=== PATIENT | male | born 1985 | race Caucasian/White ===

== ENCOUNTER 2018-03-20 22:43 | Observation (INO) ==
[2018-03-20] MEDS ORDERED: Sod Chloride 0.9% Inj 1,000 ML IV.SIG ONE ×3 (23:11→23:15)
--- NOTE | 2018-03-20 23:51 | XR ---
EXAM DATE: 03/20/2018 11:38 PM EDT AGE/SEX: 32 years / Male INDICATIONS: Chest pain short of breath. CLINICAL DATA: This is the patient's initial encounter. Patient reports that signs and symptoms have been present for 1 day and indicates a pain score of 0/10. MEDICAL/SURGICAL HISTORY: Diabetes. None. [place] [facility] [place]. . FINDINGS: A single AP view of the chest demonstrates the lungs to be symmetrically aerated without evidence of mass, infiltrate or effusion. No evidence of pneumothorax. The cardiomediastinal contours are unrema rkable. Osseous structures are intact. CONCLUSION: The lungs are clear. Electronically signed by: Galdino Lynn MD 03/20/2018 11:49 PM EDT
[2018-03-20 23:53] LABS: ABG Base Excess 5.2 mmol/L (-2-2); ABG PCO2 41 mmHg (38-42); ABG PO2 73 mmHg (61-120)
[2018-03-20 23:54] LABS: Alanine Aminotransferase 56 U/L (12-78); Alkaline Phosphatase 60 U/L (45-117); Beta Hydroxybutyric Acid 0.39 mmol/L (0.00-0.39); Total Protein 7.3 g/dL (6.4-8.2)
[2018-03-20 23:57] LABS: Anion Gap 10 meq/L (5-15); Aspartate Aminotransferase 44 U/L (15-37); Blood Urea Nitrogen 17 mg/dL (7-18); Calcium 9.4 mg/dL (8.5-10.1); Chloride 103 meq/L (98-107); Glomerular Filtration Rate 62 mL/min (>89); Glucose,Random 116 mg/dL (74-106); Lipase 62 U/L (73-393); Sodium 140 meq/L (136-145)
[2018-03-21] LABS: Potassium 3.8 meq/L (3.5-5.1)
[2018-03-21 00:11] LABS: Baso # (Auto) 0.1 th/mm3 (0.0-0.2); Baso % (Auto) 0.8 % (0.0-2.0); Eos # (Auto) 0.2 th/mm3 (0.0-0.4); Eos % (Auto) 1.5 % (0.0-4.0); Hematocrit 40.3 % (39.0-51.0); Hemoglobin 13.8 gm/dL (13.0-17.0); Lymph # (Auto) 2.8 th/mm3 (1.0-4.8); Lymph % (Auto) 23.3 % (9.0-44.0); Mean Corpuscular HGB Conc 34.2 % (32.0-36.0); Mean Corpuscular Hemoglobin 28.8 pg (27.0-34.0); Mean Corpuscular Volume 84.3 fL (80.0-100.0); Mean Platelet Volume 9.6 fL (7.0-11.0); Mono # (Auto) 1.1 th/mm3 (0.0-0.9); Mono % (Auto) 9.3 % (0.0-8.0); Neut # (Auto) 7.8 th/mm3 (1.8-7.7); Neut % (Auto) 65.1 % (16.0-70.0); Platelet Count 152 th/mm3 (150-450); Red Blood Count 4.79 mil/mm3 (4.50-5.90)
--- NOTE | 2018-03-21 00:41 | ED ---
HPI General Chief Complaint: Chest Pain Stated Complaint: Patient states chest pain/diabetic Time Seen by Provider: 03/20/18 23:03 Source: patient Mode of arrival: EMS History of Present Illness HPI narrative: Patient is a 32-year-old male presented with complaint of nausea vomiting and elevated glucose because she has not had his insulin for 2 days. He was just released from [facility] and he is homeless and has no medications. He was incarcerated for 3 months and released 2 days ago. Patient also reported chest pain on the left side. Radiating to left arm. MD complaint: chest pain STEMI Alert: No Onset (ago): day(s) (2) Duration: constant Onset: during rest Pain location: left chest Severity: severe Severity scale (1-10): 8 Quality: aching Pain radiation: LUE Relieving factors: nothing Exacerbating factors: nothing Associated symptoms: nausea and vomiting Related Data Home Medications Medication Instructions Recorded Confirmed insulin glargine [Lantus U-100 55 unit SUBCUT DAILY 03/20/18 03/20/18 Insulin] insulin regular human [Novolin R 1 sliding scale dose SUBCUT UD 03/20/18 Regular U-100 Insuln] Allergies Allergy/AdvReac Type Severity Reaction Status Date / Time Sulfa (Sulfonamide Allergy Severe HIVES Verified 03/20/18 22:56 Antibiotics) Review of Systems ROS: all other systems reviewed are negative [facility] Medical History Medical History Diabetes (Acute) Kidney atrophy (Acute) Social History Social History Substance History: No History of Abuse Second Hand Smoke Exposure: No Smoking Status: Former smoker How Often Do You Have a Drink Containing Alcohol: Never Recent Travel in [facility] within the Last 8 Weeks: No Recent Out of Country Travel within the Last 8 Weeks: No Immunization History Tetanus Immunization: Unsure Hx Influenza Vaccine This Season: No Exam Narrative Exam Narrative: GENERAL: Alert and oriented in no distress SKIN: Focused skin assessment warm/dry. HEAD: Atraumatic. Normocephalic. EYES: Pupils equal and round. No scleral icterus. No injection or drainage. ENT: No nasal bleeding or discharge. Mucous membranes pink and moist. NECK: Trachea midline. No JVD. CARDIOVASCULAR: Tachycardia with regular rhythm. No murmur appreciated. RESPIRATORY: No accessory muscle use. Clear to auscultation. Breath sounds equal bilaterally. GASTROINTESTINAL: Abdomen soft, non-tender, nondistended. Hepatic and splenic margins not palpable. MUSCULOSKELETAL: No obvious deformities. No clubbing. No cyanosis. No edema. NEUROLOGICAL: Awake and alert. No obvious cranial nerve deficits. Motor grossly within normal limits. Normal speech. PSYCHIATRIC: Appropriate mood and affect; insight and judgment normal. Course Hospital Course: Initially based on the patient's provided history with thought that she will be in DKA and we initiated fluid resuscitation however the patient's glucose was 110 so we DC the 2 of the 3 L. Reevaluation(s) Reevaluation #1: Resting comfortably no distress. Stable vitals. Time: 01:13 Initial Documented Vital Signs Temperature 97.3 F L 03/20/18 22:53 Pulse Rate 107 H 03/20/18 22:53 Respiratory Rate 16 03/20/18 22:53 Blood Pressure 114/82 03/20/18 22:53 Pulse Oximetry 94 L 03/20/18 22:53 Last Documented Vital Signs Temperature 97.3 F L 03/20/18 22:53 Pulse Rate 100 H 03/21/18 00:54 Respiratory Rate 18 03/21/18 00:54 Blood Pressure 116/73 03/21/18 00:54 Pulse Oximetry 95 03/21/18 01:06 Medical Decision Making MDM Narrative Medical decision making narrative: Patient with chest pain and marginal hyperglycemia not in DKA we will placed the chest pain unit to rule out ACS. Medical Screen Exam Complete: Yes Emergency Medical Condition: Yes Medical Records Medical records reviewed: Yes I reviewed the patient's medical records. Lab Data Lab results reviewed: Yes I reviewed the patient's lab results. Result diagrams: 03/20/18 23:56 03/20/18 23:23 Lab Results 03/20/18 03/20/18 03/20/18 Range/Units 23:20 23:21 23:23 WBC (4.0-11.0) th/mm3 RBC (4.50-5.90) mil/mm3 Hgb (13.0-17.0) gm/dL Hct (39.0-51.0) % MCV (80.0-100.0) fL MCH (27.0-34.0) pg MCHC (32.0-36.0) % RDW (11.6-17.2) % Plt Count (150-450) th/mm3 MPV (7.0-11.0) fL Neut % (Auto) (16.0-70.0) % Lymph % (Auto) (9.0-44.0) % Coke % (Auto) (0.0-8.0) % Eos % (Auto) (0.0-4.0) % Baso % (Auto) (0.0-2.0) % Neut # (Auto) (1.8-7.7) th/mm3 Lymph # (Auto) (1.0-4.8) th/mm3 [place] # (Auto) (0.0-0.9) th/mm3 Eos # (Auto) (0.0-0.4) th/mm3 Baso # (Auto) (0.0-0.2) th/mm3 WBC Differential Differential Comment Puncture Site Patient Temperature O2 Saturation (90-100) % ABG pH (7.380-7.420) ABG pCO2 (38-42) mmHg ABG pO2 (61-120) mmHg ABG HCO3 (22-26) mmol/L ABG O2 Content (12.0-20.0) Vol % ABG Base Excess (-2-2) mmol/L ABG Methemoglobin (0-2) % Dago Test Hemoglobin (12.0-16.0) G/DL Carboxyhemoglobin (0-4) % O2 Delivery Device Inspired O2 % Critical Value Sodium 140 (136-145) meq/L Potassium 3.8 (3.5-5.1) meq/L Chloride 103 (98-107) meq/L Carbon Dioxide 27.0 (21.0-32.0) meq/L Anion Gap 10 (5-15) meq/L BUN 17 (7-18) mg/dL Creatinine 1.34 H (0.60-1.30) mg/dL Estimated GFR 62 L (>89) mL/min POC Glucose 119 H 123 H (68-110) mg/dl Random Glucose 116 H (74-106) mg/dL Calcium 9.4 (8.5-10.1) mg/dL Total Bilirubin 0.8 (0.2-1.0) mg/dL AST 44 H (15-37) U/L ALT 56 (12-78) U/L Alkaline Phosphatase 60 (45-117) U/L Total Protein 7.3 (6.4-8.2) g/dL Albumin 4.0 (3.4-5.0) g/dL Lipase 62 L (73-393) U/L Beta-Hydroxybutyric Acd 0.39 (0.00-0.39) mmol/L 03/20/18 03/20/18 Range/Units 23:29 23:56 WBC 12.0 H (4.0-11.0) th/mm3 RBC 4.79 (4.50-5.90) mil/mm3 Hgb 13.8 (13.0-17.0) gm/dL Hct 40.3 (39.0-51.0) % MCV 84.3 (80.0-100.0) fL MCH 28.8 (27.0-34.0) pg MCHC 34.2 (32.0-36.0) % RDW 13.0 (11.6-17.2) % Plt Count 152 (150-450) th/mm3 MPV 9.6 (7.0-11.0) fL Neut % (Auto) 65.1 (16.0-70.0) % Lymph % (Auto) 23.3 (9.0-44.0) % [place] % (Auto) 9.3 H (0.0-8.0) % Eos % (Auto) 1.5 (0.0-4.0) % Baso % (Auto) 0.8 (0.0-2.0) % Neut # (Auto) 7.8 H (1.8-7.7) th/mm3 Lymph # (Auto) 2.8 (1.0-4.8) th/mm3 [place] # (Auto) 1.1 H (0.0-0.9) th/mm3 Eos # (Auto) 0.2 (0.0-0.4) th/mm3 Baso # (Auto) 0.1 (0.0-0.2) th/mm3 WBC Differential . Differential Comment Auto diff final Puncture Site Right radial Patient Temperature 98.6 O2 Saturation 94 (90-100) % ABG pH 7.47 H (7.380-7.420) ABG pCO2 41 (38-42) mmHg ABG pO2 73 (61-120) mmHg ABG HCO3 29 H (22-26) mmol/L ABG O2 Content 20.1 H (12.0-20.0) Vol % ABG Base Excess 5.2 H (-2-2) mmol/L ABG Methemoglobin 0.6 (0-2) % Dago Test Present Hemoglobin 15.2 (12.0-16.0) G/DL Carboxyhemoglobin 1.1 (0-4) % O2 Delivery Device Room air Inspired O2 21 % Critical Value No Sodium (136-145) meq/L Potassium (3.5-5.1) meq/L Chloride (98-107) meq/L Carbon Dioxide (21.0-32.0) meq/L Anion Gap (5-15) meq/L BUN (7-18) mg/dL Creatinine (0.60-1.30) mg/dL Estimated GFR (>89) mL/min POC Glucose (68-110) mg/dl Random Glucose (74-106) mg/dL Calcium (8.5-10.1) mg/dL Total Bilirubin (0.2-1.0) mg/dL AST (15-37) U/L ALT (12-78) U/L Alkaline Phosphatase (45-117) U/L Total Protein (6.4-8.2) g/dL Albumin (3.4-5.0) g/dL Lipase (73-393) U/L Beta-Hydroxybutyric Acd (0.00-0.39) mmol/L Imaging Data Radiologist's impression: Chest X-Ray 03/20/18 23:11 CONCLUSION: The lungs are clear. ECG Data Attestation: I personally reviewed and interpreted this ECG as follows: Interpretation: Sinus tachycardia 100 bpm TN interval 131 ms. QTc 385 ms. Normal axis. Nonspecific ST-T wave abnormalities. No signs of acute ischemia. Discharge Plan Discharge Disposition Patient Disposition: 30 Still Patient Discharge Condition Condition: Good Discharge Details Diagnosis: Atypical chest pain Physicians Team ED Provider: Zain Campbell Primary Care Provider: Primary Care Marisabel Martinez Attending Provider: Adan Reyna Discharge Interventions Interventions: Vital Signs Last Done: 03/21/18 00:54 Status ED Status: Admitted Observation Patient
[2018-03-21 02:14] LABS: Creatine Kinase 135 U/L (39-308)
[2018-03-21 03:36] LABS: Bilirubin,Urine Negative (Negative); Clarity,Urine Hazy (Clear); Color,Urine Yellow (Yellw/Straw); Glucose,Urine (UA) Negative (Negative); Hyaline Casts,Urine 4 /lpf (0-3); Leukocyte Esterase,Urine Negative (Negative); Mucus,Urine Few /lpf (Occasional); Nitrite,Urine Negative (Negative); Specific Gravity,Urine 1.018 (1.002-1.035); Squamous Epithelial Cell,Urine <1 /hpf (0-5)
[2018-03-21 05:12] LABS: Creatine Kinase 134 U/L (39-308)
[2018-03-21 05:18] VITALS: O2SAT 96
[2018-03-21] MEDS ORDERED: Dextrose 50% in Water 50 ML Vial IV.PUSH PRN (07:21)
[2018-03-21] MEDS ORDERED: Insulin NovoLIN Regular Correctional Sugar Inj SQ SCH (08:00)
--- NOTE | 2018-03-21 08:28 | ECG ---
Date Performed: 03/21/2018 Time Performed: 04:32:06 PTAGE: 32 years EKG: Sinus rhythm NORMAL ECG Since PREVIOUS TRACING , no significant change noted PREVIOUS TRACIN12/21/2011 04.08 DOCTOR: Anette Portillo Interpretating Date/Time 03/21/2018 08:26:29
--- NOTE | 2018-03-21 08:29 | ECG ---
Date Performed: 03/20/2018 Time Performed: 23:12:00 PTAGE: 32 years EKG: SINUS TACHYCARDIA ABNORMAL RHYTHM ECG Since PREVIOUS TRACING , no significant change noted DOCTOR: Anette Portillo Interpretating Date/Time 03/21/2018 08:28:28
--- NOTE | 2018-03-21 08:29 | ECG ---
Date Performed: 03/21/2018 Time Performed: 01:29:22 PTAGE: 32 years EKG: Sinus rhythm NORMAL ECG Since PREVIOUS TRACING , no significant change noted PREVIOUS TRACIN12/21/2011 04.08 DOCTOR: Anette Portillo Interpretating Date/Time 03/23/2018 07:07:53
[2018-03-21 08:57] VITALS: BP 100/57; PULSE 90; RESP 16; TEMP 98.8
--- NOTE | 2018-03-21 09:31 | P.HPCA ---
History of Present Illness Primary Care Physician: No Primary Care Physician Chief Complaint: Chest pain History of Present Illness: This is a 32-year-old male with a stated history of diabetes, hepatitis C, and born with one kidney that presents to ED to be evaluated for chest discomfort patient states that he had been incarcerated and was released 2 days ago. Planes of nausea vomiting and was thinking that his glucose is elevated however his glucose was 119 upon arrival to ED. Describes intermittent chest discomfort for last 2 days it last anywhere in 30-45 minutes. When asked we think is bring on the discomfort, patient replies "I have been under a lot of stress. Was just released from retirement and I am now homeless." Denies prior history of CAD. Cannot recall having cardiac workup. Currently denies chest discomfort. Patient has history of diabetes, hepatitis C, states he is warm to one kidney. Denies hypertension, hyperlipidemia, and known CAD. Patient states is a lifetime non-smoker. Denies alcohol or illicit drug use. Denies family history of CAD. - Diagnosis (1) Chest pain (2) Diabetes Review of Systems General: Patient denies fevers, chills, and recent travel. HEENT: Patient denies headache, sore throat, difficulty swallowing. Cardiovascular: Has the chest discomfort as mentioned above. Denies sensation of heart beating rapidly or irregularly. No syncope. Denies diaphoresis. Respiratory: Denies shortness of breath or inspirational chest discomfort. Denies coughing wheezing or hemoptysis. GI: States he was nauseous yesterday and had a couple episodes of nonbloody nonbilious emesis. Patient denies diarrhea, abdominal pain, bloody stools. Musculoskeletal: Patient denies joint pain or edema. Denies calf pain or edema. Neurovascular: Patient denies numbness, tingling, weakness in extremities. Denies headache. Endocrine: Denies polyuria and polydipsia. Hematologic: Denies easy bruising. Skin: Denies rash or itching. PMFSH - History History Provided By: Patient - Medical History Medical History: Medical History (Last Reviewed 03/21/18 @ 01:13 by Zain Campbell DO) Diabetes Kidney atrophy - Tobacco History Second Hand Smoke Exposure: No Tobacco Use In Past 30 Days: No Smoking Status: Former smoker - Alcohol History How Often Do You Have a Drink Containing Alcohol: Never - Substance Use History Substance History: No History of Abuse - Travel History Recent Travel in the [place] Within the Last 8 Weeks: No Recent Travel Out of the Country Within the Last 8 Weeks: No - Immunization History Tetanus Immunization: Unsure Hx Influenza Vaccine This Season: No Medications and Allergies Active Medications: Active Medications Dextrose (D50w Vial) 50 ml IV.PUSH UNSCH PRN PRN Reason: PER HYPOGLYCEMIA PROTOCOL Glucagon (Glucagon Inj) 1 mg OTHER PRN PRN PRN Reason: for Hypoglycemia Protocol Insulin Human Regular (Novolin R Correctional Sugar Inj) 0 units SQ ACHS ASHER; Protocol Last Admin: 03/21/18 08:35 Dose: Not Given Sodium Chloride (Ns Flush) 2 ml IV.FLUSH BID ASHER Last Admin: 03/21/18 08:35 Dose: 2 ml Sodium Chloride (Ns Flush) 2 ml IV.FLUSH PRN PRN PRN Reason: FLUSH AFTER USING IV ACCESS Allergies Allergy/AdvReac Type Severity Reaction Status Date / Time Sulfa (Sulfonamide Allergy Severe HIVES Verified 03/20/18 22:56 Antibiotics) Home Medications Medication Instructions Recorded Confirmed Type insulin glargine [Lantus U-100 55 unit SUBCUT DAILY 03/20/18 03/20/18 History Insulin] insulin regular human [Novolin R 1 sliding scale dose SUBCUT UD 03/20/18 History Regular U-100 Insuln] Exam Vital signs: Vital Signs 03/20/18 22:53 03/21/18 00:54 03/21/18 01:06 Temperature 97.3 F L Pulse Rate 107 H 100 H Respiratory Rate 16 18 Blood Pressure 114/82 116/73 Pulse Oximetry 94 L 100 95 03/21/18 04:00 03/21/18 04:12 03/21/18 08:00 Temperature 98.3 F 98.8 F Pulse Rate 91 H 93 H 90 Respiratory Rate 19 16 Blood Pressure 110/58 L 100/57 L Pulse Oximetry 96 96 Intake & Output 03/20/18 03/21/18 03/21/18 18:59 06:59 18:59 Intake Total 1000 / 1000 Balance 1000 / 1000 Weight 70.63 kg Intake: IV 1000 / 1000 NS Inj 1,000 ML @ Per Protocol 1000 / 1000 IV.SIG BOLUS ONE Rx#:[id number] Other: Date of Last Bowel Movement 03/20/18 Weight On Admission 70.63 kg Narrative: GENERAL: This is a well-nourished, well-developed patient, in no apparent distress. Patient speaks in clear complete sentences. Patient is pleasant. HEENT: Head is atraumatic and normocephalic. Neck is supple without lymphadenopathy and trachea is midline. No JVD or carotid bruits. CARDIOVASCULAR: Regular rate and rhythm without murmurs, gallops, or rubs. RESPIRATORY: Clear to auscultation. Breath sounds equal bilaterally. No wheezes , rales, or rhonchi. Chest wall is nontender. No use of accessory muscles. GASTROINTESTINAL: Abdomen is nontender, nondistended. Abdomen soft. No obvious pulsatile mass or bruit. No CVA tenderness. Strong femoral pulses bilaterally. Normal bowel sounds in all quadrants. MUSCULOSKELETAL: Patient is moving upper and lower extremities freely. No calf tenderness or edema, no Homans sign. Strong pulses in upper and lower extremities. NEUROLOGICAL: Patient is alert and oriented. Cranial nerves 2-12 are grossly intact. No focal deficits and speech is clear. SKIN: No rash and turgor is normal. Results 03/20/18 23:56 03/20/18 23:23 Cardiac Enzymes 03/20/18 03/20/18 03/21/18 Range/Units 23:23 23:23 01:30 AST 44 H (15-37) U/L Troponin I Less than 0.02 L Less than 0.02 L (0.02-0.05) ng/mL 03/21/18 Range/Units 04:15 AST (15-37) U/L Troponin I Less than 0.02 L (0.02-0.05) ng/mL CBC 03/20/18 Range/Units 23:56 WBC 12.0 H (4.0-11.0) th/mm3 RBC 4.79 (4.50-5.90) mil/mm3 Hgb 13.8 (13.0-17.0) gm/dL Hct 40.3 (39.0-51.0) % Plt Count 152 (150-450) th/mm3 Neut # (Auto) 7.8 H (1.8-7.7) th/mm3 Lymph # (Auto) 2.8 (1.0-4.8) th/mm3 [place] # (Auto) 1.1 H (0.0-0.9) th/mm3 Eos # (Auto) 0.2 (0.0-0.4) th/mm3 Baso # (Auto) 0.1 (0.0-0.2) th/mm3 Comprehensive Metabolic Panel 03/20/18 Range/Units 23:23 Sodium 140 (136-145) meq/L Potassium 3.8 (3.5-5.1) meq/L Chloride 103 (98-107) meq/L Carbon Dioxide 27.0 (21.0-32.0) meq/L BUN 17 (7-18) mg/dL Creatinine 1.34 H (0.60-1.30) mg/dL Calcium 9.4 (8.5-10.1) mg/dL AST 44 H (15-37) U/L ALT 56 (12-78) U/L Alkaline Phosphatase 60 (45-117) U/L Total Protein 7.3 (6.4-8.2) g/dL Albumin 4.0 (3.4-5.0) g/dL Intake and Output 03/20/18 03/21/18 03/21/18 22:59 06:59 14:59 Intake Total 1000 / 1000 Balance 1000 / 1000 Intake: IV 1000 / 1000 NS Inj 1,000 ML @ Per Protocol 1000 / 1000 IV.SIG BOLUS ONE Rx#:[id number] Other: Date of Last Bowel Movement 03/20/18 Weight 70.632 kg 70.63 kg Weight On Admission 70.63 kg - Imaging and Cardiology Imaging: Impressions Chest X-Ray 03/20/18 23:11 CONCLUSION: The lungs are clear. EKG interpretations - EKG EKG shows: sinus rhythm (EKGs are sinus rhythm without significant ST segment depressions or elevations.) Caprini VTE Risk Assessment Caprini VTE Risk Assessment: No/Low Risk (score <= 1) Caprini Risk Assessment Model: Point Value = 1 Point Value = 2 Point Value = 3 Point Value = 5 Age 41-60 Minor surgery BMI > 25 kg/m2 Swollen legs Varicose veins or History of unexplained or recurrent spontaneous Oral contraceptives or hormone replacement Sepsis (< 1 month) Serious lung disease, including pneumonia (< 1 month) Abnormal pulmonary function Acute myocardial infarction Congestive heart failure (< 1 month) History of inflammatory bowel disease Medical patient at bed rest Age 61-74 Arthroscopic surgery Major open surgery (> 45 min) Laparoscopic surgery (> 45 min) Malignancy Confined to bed (> 72 hours) Immobilizing plaster cast Central venous access Age >= 75 History of VTE Family history of VTE Factor V Leiden Prothrombin [id number] Lupus anticoagulant Anticardiolipin antibodies Elevated serum homocysteine Heparin-induced thrombocytopenia Other congenital or acquired thrombophilia Stroke (< 1 month) Elective arthroplasty Hip, pelvis, or leg fracture Acute spinal cord injury (< 1 month) Prophylaxis Regimen: Total Risk Factor Score Risk Level Prophylaxis Regimen 0-1 Low Early ambulation 2 Moderate Order ONE of the following: *Sequential Compression Device (SCD) *Heparin 5000 units SQ BID 3-4 Higher Order ONE of the following medications: *Heparin 5000 units SQ TID *Enoxaparin/Lovenox 40 mg SQ daily (WT < 150 kg, CrCl > 30 mL/min) *Enoxaparin/Lovenox 30 mg SQ daily (WT < 150 kg, CrCl > 10-29 mL/min) *Enoxaparin/Lovenox 30 mg SQ BID (WT < 150 kg, CrCl > 30 mL/min) AND/OR *Sequential Compression Device (SCD) 5 or more Highest Order ONE of the following medications: *Heparin 5000 units SQ TID (Preferred with Epidurals) *Enoxaparin/Lovenox 40 mg SQ daily (WT < 150 kg, CrCl > 30 mL/min) *Enoxaparin/Lovenox 30 mg SQ daily (WT < 150 kg, CrCl > 10-29 mL/min) *Enoxaparin/Lovenox 30 mg SQ BID (WT < 150 kg, CrCl > 30 mL/min) AND *Sequential Compression Device (SCD) Assessment and Plan - Assessment (1) Chest pain Code(s): R07.9 - Chest pain, unspecified Status: Acute (2) Diabetes Code(s): E11.9 - Type 2 diabetes mellitus without complications Status: Acute - Plan * Chest pain: Patient has had serial cardiac enzymes and EKGs for ruling out purposes. Was seen by Dr. Portillo of cardiology and chest pain center. Will undergo a Ruben protocol ETT and be discharged home if stress test is nonischemic with instructions to follow-up with a local physician on outpatient basis and return to ED for interval issues. * Diabetes: Patient states he has not insulin for 2 days. He is worried that his glucose levels to be high however his glucose levels have been 119, 123, and 116. Patient need to have outpatient follow-up to get rearranges insulin as his blood sugars not been terribly high without being medicated for the last 2 days and at this time is no way of checking his glucose levels after taking insulin. Patient is stable at this time. He is agreeable to this plan. H&P: Quality - VTE Deep Vein Thrombosis/Pulmonary Embolism Present on Admission: No
--- NOTE | 2018-03-21 17:04 | TR ---
Date Performed: 03/21/2018 Time Performed: 10:44:52 DOCTOR: Anette Portillo DRUG LIST: CLINICAL HISTORY: REASON FOR TEST: REASON FOR ENDING: OBSERVATION: CONCLUSION: [place] PROTOCOL ETT. NO CP. TEST STOPPED AFTER EXCEEDING GOAL HR SECONDARY TO SOB AND LEG FATIGUE.Maximum LK=274 % Max HR Achieved=89.0% Total Exercise Time=9:00 No ischemia COMMENTS: no ischemia
== END 2018-03-21 12:28 | disposition home or self-care (01) ==
LOC: NEPC 22:43 → NEDA 22:43 → NEPGCP 03-21 03:18
PROVIDERS: ADMIT Internal Medicine Cardiovascular Disease; ATTEND Internal Medicine Cardiovascular Disease